=== PATIENT | female | born 1995 | race Caucasian/White ===

== ENCOUNTER 2019-04-08 12:10 | Outpatient (CLI) | payer OTHER, SELFPAY ==
[2019-04-08 12:41] VITALS: BMI 23.5
--- NOTE | 2019-04-11 09:03 | OB.TRI.NOTE ---
History of Present Illness Reason For Visit: NST Date of Service: 04/08/19 Final KEISHA: 05/27/19 Gestational age: 33 Weeks and 3 Days Allergies No Known Allergies Allergy (Verified 04/08/19 12:43) NST - FHR Rate Baby A Baseline: 135 Variability:: Minimal, Moderate Accelerations:: 15 x 15 Decelerations:: Variable NST Reactive:: Yes Uterine Activity:: quiet - FHR Rate Baby B Baseline: 125 Variability:: Minimal, Moderate Accelerations:: 15 x 15 Decelerations:: None NST Reactive:: Yes Uterine Activity:: quiet Impression/Plan Reactive NST for di/di twins
== END 2019-04-08 13:10 | disposition home or self-care (01) ==
LOC: WPOUT 12:38 → WP 12:38
PROVIDERS: Referring Provider Obstetrics & Gynecology; Visit Provider Obstetrics & Gynecology
DX: O30.043 Twin pregnancy, dichorionic/diamniotic, third trimester (principal); Z3A.33 33 weeks gestation of pregnancy
CPT/HCPCS: 59025

== ENCOUNTER 2019-04-22 09:50 | Outpatient (CLI) | payer OTHER, SELFPAY ==
[2019-04-22 10:10] VITALS: BMI 23.8
--- NOTE | 2019-04-22 12:22 | OB.TRI.NOTE ---
- Problem List (1) Twin Status: Acute Qualifiers: Multiple gestation type: dichorionic and diamniotic Trimester: third trimester Qualified Code(s): O30.043 - Twin , dichorionic/diamniotic, third trimester History of Present Illness Date of Service: 04/22/19 Was patient seen by the physician?: No Reason For Visit: NST / TWINS Date of Service: 04/22/19 Final KEISHA: 05/27/19 Final KEISHA Source: US <20 weeks Gestational age: 35 Weeks and 0 Days History of Present Illness: Patient presents to hospital for weekly NST. Patient denies any complaints or concerns at this time. She reports FM x 2 today. Allergies No Known Allergies Allergy (Verified 04/22/19 10:38) Review of Systems Unable to obtain accurate/complete ROS d/t: see nursing note for ROS Physical Exam Vitals: VSS, Afebrile See nursing note for PE NST - FHR Rate Baby A Baseline: 135 Variability:: Moderate Accelerations:: 15 x 15 Decelerations:: None NST Reactive:: Yes, Appropriate for gestational age FHR Category:: Category I Uterine Activity:: Uterine irritability noted - FHR Rate Baby B Baseline: 130 Variability:: Moderate Accelerations:: 15 x 15 Decelerations:: None NST Reactive:: Yes, Appropriate for gestational age FHR Category:: Category I Uterine Activity:: Uterine irritabilty noted.
== END 2019-04-22 10:50 | disposition home or self-care (01) ==
LOC: WPOUT 09:53 → WP 09:54
PROVIDERS: Referring Provider Obstetrics & Gynecology; Visit Provider Obstetrics & Gynecology
DX: O30.043 Twin pregnancy, dichorionic/diamniotic, third trimester (principal); Z3A.35 35 weeks gestation of pregnancy
CPT/HCPCS: 59025; 59050; 99218; G0378

== ENCOUNTER 2019-04-24 22:06 | Observation (INO) | payer OTHER, SELFPAY ==
[2019-04-24 20:29] VITALS: BMI 23.5
[2019-04-24 20:51] VITALS: BMI 23.6
--- NOTE | 2019-04-24 22:06 | PCM.HP.OB ---
- Problem List (1) 35 weeks gestation of Status: Acute (2) Vaginal bleeding Status: Acute (3) contractions Status: Acute (4) Twin Status: Acute Qualifiers: History Date of Admission: 04/24/19 Final KEISHA: 05/27/19 Gestational age: 35 Weeks and 2 Days History of this : This is a 23 year-old, G1, P0, at 35 weeks gestational age with di/di twins. She has been 4 cm dilated in the office. She had intercourse, and then began having ctx's q 10-15 min. They are getting more uncomfortable/painful since being here over the last 1-2 hours. +Bright red vaginal bleeding with cervical exams, but no bleeding prior. No LOF. Good FM x 2. Medical History: Medical History (Last Updated 04/24/19 @ 22:09 by Meliza Reyes DO) Anemia D64.9 Rubella non-immune status, antepartum O99.89, Z28.3 Allergies No Known Allergies Allergy (Verified 04/24/19 20:52) Home Medications: Home Medications Vit No.130/Iron/Folic [ Tablet] 1 each PO DAILY 04/08/19 Ergocalciferol [Vitamin D] 1 tab PO DAILY 04/24/19 Ferrous Sulfate, Dried [Iron] 159 mg PO DAILY 04/24/19 Zinc 50 mg PO DAILY 04/24/19 Smoking Status: Never smoker Alcohol: None Number of Fetus(es): 2 Heart Tracing: FHT: A 120/mod christa/+accels/no decels B 120/mod christa/+accels/no decels TOCO Analysis: Irritability with irregular ctx's History Past Pregnancies: Past Pregnancies Delivery Date Name GA/Weeks Outcome Route Weight Infant Gender Labor Length Anesthesia Delivery Location Provider FOB Labs: GBS neg Hgb 11.5 1 hr GTT 115 Syphilis NR RNI Hep B neg HIV NR A pos Antibody screen neg GC/CT neg Expected Delivery Method: Spontaneous Vaginal Review of Systems Gynecological: Reports: Vaginal bleeding, - - +Contractions Physical Exam General: Alert, No apparent distress HEENT: Atraumatic Cardiovascular: Regular rate Lungs: Normal air movement Abdomen: Soft, Non Tender, Gravid Extremities:: No edema Neurological: Neuro grossly intact MEDICAL LABORATORY SPECIALIST: Normal external genitalia Presentation: Cephalic Cervix Dilation (cm): 4.5 - per workers compensation claims specialist/Plan All Active Problems Twin (Acute) 35 weeks gestation of (Acute) Vaginal bleeding (Acute) contractions (Acute) This is a 23 year-old, G1, P0, at 35 weeks gestational age with di/di twins who presents with contractions and vaginal bleeding. Had intercourse and now having ctx's q 10-15 min. Contractions have worsened for her over last 1-2 hours. BRB after first cervical exam. - Cvx 4-5 cm and unchanged after recheck - FHT reactive and reassuring x 2 - Most recent US on 04/22/19 showing vertex/vertex presentation - Most recent growth US on 04/15/19: Baby A 1887 g (6%) and Baby B 2673 g (83%) with a 29.4 % discordance - Received BMZ on 04/22 and 04/23/19 - GBS neg - Will admit for observation overnight as patient's contractions have become more uncomfortable for her. She has minimal bright red vaginal bleeding as well. She is currently comfortable appearing. Discussed with patient to notify us if she becomes more uncomfortable, and will recheck cervix at that time - Will place IV and get CBC, T&S - NPO with sips of water overnight - Discussed with patient that if Baby A delivers vaginally, there is a possibility that Baby B turns to transverse or breech. If Baby B turns to breech she will need a section given the growth discordance with baby A being IUGR. Discussed epidural at time of delivery as well, and patient is undecided. Discussed possibility of needing general anesthesia for a section for baby B. All questions answered
[2019-04-24 22:54] LABS: Hematocrit 31.1 % (37-47); Hemoglobin 10.5 g/dl (12.0-15.0); Mean Corp Hgb Conc 33.8 g/gl (32-36); Mean Corpuscular Hgb 30.3 pg (27.0-32.0); Mean Corpuscular Volume 89.9 fL (81-99); Mean Platelet Vol. 10.5 fl (6.2-12.0); Platelet Count 207 K/mm3 (150-450); RBC Distribution Width CV 13.6 % (11.6-14.6); Red Blood Count 3.46 M/mm3 (4.2-5.4)
[2019-04-24 22:57] LABS: Scan Indicated on CBC? Y/N NO
--- NOTE | 2019-04-25 08:13 | PCM.PN.BLA ---
Progress Note Patient doing well this morning. She is still feeling occasional contractions but they are irregular. Vaginal bleeding is less. No other new complaints. Patient is comfortable appearing. Cvx remains unchanged and bleeding is now old, brown blood. FHT reactive and reassuring x 2. [place] with irregular ctx's. Discharge instructions reviewed with patient. Discussed pelvic rest. Has IOL scheduled for Sunday. Reviewed PTL precautions.
--- NOTE | 2019-04-25 08:16 | PN_ITS ---
Progress Note Patient doing well this morning. She is still feeling occasional contractions but they are irregular. Vaginal bleeding is less. No other new complaints. Patient is comfortable appearing. Cvx remains unchanged and bleeding is now old, brown blood. FHT reactive and reassuring x 2. [place] with irregular ctx's. Discharge instructions reviewed with patient. Discussed pelvic rest. Has IOL scheduled for Sunday. Reviewed PTL precautions.
--- NOTE | 2019-04-25 08:18 | DCINST_ITS ---
- Discharge Diagnoses Current Active Problems: Current Active and Chronic Problems (Last Updated 04/24/19 @ 22:09 by Meliza Reyes DO) 35 weeks gestation of (Acute) Vaginal bleeding (Acute) contractions (Acute) You will use the following diet at home:: No restrictions, Regular Discharge Activity: - - Nothing in the vagina May resume sexual activity in: - - No intercourse until after delivery Weight Bearing Status: Weight bearing as tolerated, Full weight bearing Lifting Restrictions: Nothing heavier than 25 pounds Call your doctor if you observe: - - Increased vaginal bleeding, leaking of fluid, increase in contractions or more painful contractions, decreased movement Allergies/Adverse Reactions: Allergies No Known Allergies Allergy (Verified 04/24/19 20:52) Medications to take at Discharge Vit No.130/Iron/Folic [ Tablet] 1 each PO DAILY 04/08/19 Ergocalciferol [Vitamin D] 1 tab PO DAILY 04/24/19 Ferrous Sulfate, Dried [Iron] 159 mg PO DAILY 04/24/19 Zinc 50 mg PO DAILY 04/24/19 Primary Care Physician: Care Physician,No Primary [Primary Care Provider] - Test Results: Test results from this visit will be discussed in further detail at your follow- up appointment, if applicable. Proposed Discharge Date: 04/25/19
== END 2019-04-25 08:10 | disposition home or self-care (01) ==
LOC: WPOUT 04-25 08:24
PROVIDERS: Admitting Provider Obstetrics & Gynecology; Referring Provider Obstetrics & Gynecology; Visit Provider Obstetrics & Gynecology
DX: O46.93 Antepartum hemorrhage, unspecified, third trimester (principal); Z3A.35 35 weeks gestation of pregnancy; O30.043 Twin pregnancy, dichorionic/diamniotic, third trimester; O62.9 Abnormality of forces of labor, unspecified; O99.02 Anemia complicating childbirth; D64.9 Anemia, unspecified
CPT/HCPCS: 59025; 59050; 85027; 86850; 86900; 99218; G0378

== ENCOUNTER 2019-04-29 06:52 | Inpatient (IN) | payer SELFPAY ==
[2019-04-29 07:21] VITALS: BMI 21.9
[2019-04-29] MEDS: Lactated Ringers 1,000 ML 50 ML IV ×2 (07:25→09:37)
[2019-04-29 07:41] LABS: Absolute Lymphocyte Count 3.55 X10^3/ul (0.83-4.51); Absolute Neutrophil Count 7.5 X10^3/uL (2.0-7.7); Basophil# 0.01 X10^3/uL; Basophil% 0.1 % (0-1); Eosinophils% 0.9 % (0-5); Hematocrit 36.7 % (37-47); Hemoglobin 12.9 g/dl (12.0-15.0); Lymphocyte # 3.55 X10^3/ul (4.0); Lymphocyte % 30.3 % (19-41); Mean Corp Hgb Conc 35.1 g/gl (32-36); Mean Corpuscular Hgb 30.8 pg (27.0-32.0); Mean Corpuscular Volume 87.6 fL (81-99); Mean Platelet Vol. 10.4 fl (6.2-12.0); Monocyte# 0.49 X10^3/uL; Monocyte% 4.2 % (0-10); Neutrophil # 7.46 X10^3/uL (2.7-7.7); Neutrophil % 63.6 % (47-70); POSITIVE COUNT NO; POSITIVE DIFFERENTIAL NO; POSITIVE MORPHOLOGY NO; Platelet Count 212 K/mm3 (150-450); RBC Distribution Width CV 13.4 % (11.6-14.6); RBC Distribution Width SD 42.4 fl (35.1-43.9); Red Blood Count 4.19 M/mm3 (4.2-5.4); White Blood Count 11.7 K/mm3 (4.4-11.0)
--- NOTE | 2019-04-29 08:01 | PCM.PN.BLA ---
Progress Note Cervix 5/80/0, medium consistency and mid position. AROM w return of small amount clear fluid. FHTS x2 category 1., Brief US confirms VTx/VTX
[2019-04-29] MEDS: Oxytocin 30 units/NS 500 ml 30 UNITS/500 ML IV.SOLN IV (08:22)
[2019-04-29] MEDS: fentaNYL-bupivacaine (epidural) 100 ML BAG EPIDURAL (10:08)
--- NOTE | 2019-04-29 16:46 | PLAC_PTH ---
PATIENT: BRIGIDA THOMASON LOC: [facility] U#:[id number] AGE/SX: 23/ ROOM: WP021 RE04/29/[address]: Dr. Ramona Guy MD : [id number] BED: 1 DIS: 05/01/2019 SPEC #: [id number] RECD: 04/29/19 20:01 STATUS: JEFFREY DODIE #: [id number] TRENT: 04/29/19 16:[address]: Ramona Guy DEPT: SURGICAL PATHOLOGY RECD BY: Gary Chaparro ENTERED: 04/30/19 10:23 SP TYPE: PLACENTA OTHR DR: Kylah Primary Care Phys Tissues: Placenta, NOS Procedures: Surgery Specimen Level V HEADER OPERATION: Vaginal delivery PRE-OP DIAGNOSIS: Twins, baby A IUGR, cord clamp on B TISSUE SUBMITTED: Placenta MICROSCOPIC DIAGNOSIS Twin placenta: Dichorionic and diamniotic twin placenta (two separate placentas). Placenta A: Placental disc - third trimester placenta (347 gm). - Focal villous congestion and hemorrhage. Membranes - no pathologic diagnosis. Umbilical cord - three blood vessels and no pathologic diagnosis. Placenta B: Placental disc - third trimester placenta (462 gm). - Focal villous congestion and hemorrhage. Membranes - no pathologic diagnosis. Umbilical cord - three blood vessels and no pathologic diagnosis. SJ:dominga 05/02/19 MICROSCOPIC DESCRIPTION Slides are reviewed. GROSS DESCRIPTION SPECIMEN: TWIN PLACENTA The specimen consists of twin placenta consisting completely of two separate placentas with placenta B identified by a cord clamp. No dividing membranous septum is noted. Also present in the container are separate blood clots weighing 16 gm and measuring in aggregate 7 x 4 x 2 cm. / CLINICAL INFORMATION: A. Weight: A - 2.025 kg; B - 2.61 kg B. Gestational Age: 36 weeks C. Sex: A - Male; B - Male PLACENTA A: PLACENTAL WEIGHT (POST FIXATION): 347 gm PLACENTAL DIMENSIONS: 17 x 14 x 2 cm PLACENTAL SHAPE: Usual ovoid PLACENTAL WEIGHT FOR GESTATIONAL AGE: Within 10-99th percentile MEMBRANES - Present A. Insertion: Marginal B. Site of rupture from edge: 10 cm from edge of placental disc C. Color of membrane: Granado-bernard D. Abnormalities: None UMBILICAL CORD - Present A. Color: Granado-bernard B. Insertion: Paracentral C. Length: 26 cm D. Diameter: 1 cm E. Number of vessels: Three F. Abnormalities: None PLACENTAL DISC - Present A. Color of surface: Granado-bernard B. surface abnormalities: None C. Maternal cotyledons: Intact with minimal tears D. Attached retro placental clot: No clot E. Cut surface: Dark red and spongy F. Lesions: None G. Separate clot: Absent PLACENTA B: (with cord clamp) PLACENTAL WEIGHT (POST FIXATION): 462 gm PLACENTAL DIMENSIONS: 21 x 18 x 3 cm PLACENTAL SHAPE: Usual ovoid PLACENTAL WEIGHT FOR GESTATIONAL AGE: Within 10-99th percentile MEMBRANES - Present A. Insertion: Marginal B. Site of rupture from edge: 9 cm from edge of placental disc C. Color of membrane: Granado-bernard D. Abnormalities: None UMBILICAL CORD - Present A. Color: Granado-bernard B. Insertion: Central C. Length: 29 cm D. Diameter: 1.2 cm E. Number of vessels: Three F. Abnormalities: None PLACENTAL DISC - Present A. Color of surface: Granado-bernard B. surface abnormalities: None C. Maternal cotyledons: Intact with minimal tears D. Attached retro placental clot: No clot E. Cut surface: Dark red and spongy F. Lesions: None G. Separate clot: Absent SECTIONS SUBMITTED: 10 cassettes 1-5 - placenta A (1 - membrane roll, 2 - umbilical cord, end inked black, 3-5 - body of the placenta including maternal and surfaces), 6-10 - placenta B (6 - membrane roll, 7 - umbilical cord, end inked black, 8-10 - body of the placenta including maternal and surfaces). SJ:dominga 05/01/19 TC:5 CPT: 55655 x2
[2019-04-29] MEDS: Oxytocin 30 units/NS 500 ml 30 UNITS/500 ML IV.SOLN 334 UNITS IV (16:50)
[2019-04-29] MEDS: Oxytocin 30 units/NS 500 ml 30 UNITS/500 ML IV.SOLN 167 UNITS IV (17:20)
--- NOTE | 2019-04-29 17:21 | HP.PCM_ITS ---
History Date of Admission: 04/24/19 Final KEISHA: 05/27/19 Gestational age: 36 Weeks and 0 Days History of this : This is a 23 year-old, G [], P [], at 36 weeks gestational age. Medical History: Medical History (Last Updated 04/24/19 @ 22:09 by Meliza Reyes DO) Anemia D64.9 Rubella non-immune status, antepartum O99.89, Z28.3 Allergies No Known Allergies Allergy (Verified 04/24/19 20:52) Home Medications: Home Medications Vit No.130/Iron/Folic [ Tablet] 1 each PO DAILY 04/08/19 Ergocalciferol [Vitamin D] 1 tab PO DAILY 04/24/19 Ferrous Sulfate, Dried [Iron] 159 mg PO DAILY 04/24/19 Zinc 50 mg PO DAILY 04/24/19 Smoking Status: Never smoker History Past Pregnancies: Past Pregnancies Delivery Date Name GA/Weeks Outcome Route Weight Infant Gender Labor Length Anesthesia Delivery Location Provider FOB Labs: see [facility] H[facility]P Physical Exam General: Alert, Oriented x3 Abdomen: Soft, Non Tender, Non-Distended Neurological: Cranial nerves II-XII grossly intact Assessment/Plan All Active Problems (Last Updated 04/24/19 @ 22:09 by Meliza Reyes DO) Twin (Acute) 35 weeks gestation of (Acute) Vaginal bleeding (Acute) contractions (Acute) This is a 23 year-old female at 36 weeks gestational age. Admit to L&D Di/di twins with baby A IUGR - proceed with induction of labor per recommendat ion of ([facility]) Induction - amniotomy & pitocin Pain - epidural GBS negative Peds aware & s/p BMZ Routine care
--- NOTE | 2019-04-29 17:23 | PCM.OPRPT ---
Report of Operation Date of Procedure: 04/29/19 Vaginal Delivery Maternal Presentation: Medically Indicated Induction Method of Induction: Pitocin, Amniotomy Medical Reason for Induction: Compromise: list: - Baby A IUGR Amniotic Membrane Rupture Type: Artificial Amniotic Fluid Description: Clear Final KEISHA: 05/27/19 Gestational age: 36 Weeks and 0 Days Date of Procedure: 04/29/19 Pre-Operative Diagnosis: (1) Di/di twins (2) Baby A IUGR Post-Operative Diagnosis: (2) Di/di twins (2) Baby A IUGR (3) Baby B Non-reassuring heart tones Surgery/ Procedure Performed: Spontaneous Vaginal Delivery - Baby A, Vacuum Assisted Vaginal Delivery - Baby B Type of Anesthesia: Epidural Description of Procedure: Patient taken to OR. She was put in stirrups, prepped & draped. After 2 contractions she went from anterior lip to C/C/+1. The patient started pushing. After about 3 hours of pushing the head of baby A delivered. The shoulders & body easily followed. 3VC clamped & cut. Baby A was handed to the waiting pediatric nurse. Baby B was confirmed vertex by ultrasound. Amniotomy performed & FSE placed. The patient rested briefly & then resumed pushing when head was at the +1 station. She made good descent to the +2 station with pushing. Patient pushed well but was having deep variables with contractions to the 40's. The head position was assessed & decision made to use the vacuum for these persistent deep variables. Vacuum placed on head & position confirmed. With good maternal pushing the head delivered with 1 pull of the vacuum. Vacuum released. Shoulders & body easily delivered. 3VC clamped & cut. Baby B handed to waiting experimental plastics fabricator. Placentas delivered with gentle traction. Good uterine tone obtained. Presentation: Vertex Placental Delivery Description: Expressed Placenta Disposition: [facility] Cord Vessel Description: 3 Vessels Cord Entanglement: None Estimated Blood Loss: 400ml (1 minute): 9 (5 minute): 9 Episiotomy Description: None Laceration: Vaginal Extension/lac - repaired with 3-0 vicryl Medications given after delivery: IV Pitocin Complications: None Baby B - Information Amniotic Membrane Rupture Type: Artificial Presentation: Vertex - Operative Information Cord Entanglement: None Cord Vessel Description: 3 Vessels Infant B gender: Male (1 minute): 8 (5 minute): 9
--- NOTE | 2019-04-29 17:27 | OP.PCM_ITS ---
Report of Operation Date of Procedure: 04/29/19 Vaginal Delivery Maternal Presentation: Medically Indicated Induction Method of Induction: Pitocin, Amniotomy Medical Reason for Induction: Compromise: list: - Baby A IUGR Amniotic Membrane Rupture Type: Artificial Amniotic Fluid Description: Clear Final KEISHA: 05/27/19 Gestational age: 36 Weeks and 0 Days Date of Procedure: 04/29/19 Pre-Operative Diagnosis: (1) Di/di twins (2) Baby A IUGR Post-Operative Diagnosis: (2) Di/di twins (2) Baby A IUGR (3) Baby B Non- reassuring heart tones Surgery/ Procedure Performed: Spontaneous Vaginal Delivery - Baby A, Vacuum Assisted Vaginal Delivery - Baby B Type of Anesthesia: Epidural Description of Procedure: Patient taken to OR. She was put in stirrups, prepped & draped. After 2 contractions she went from anterior lip to C/C/+1. The patient started pushing. After about 3 hours of pushing the head of baby A delivered. The shoulders & body easily followed. 3VC clamped & cut. Baby A was handed to the waiting pediatric nurse. Baby B was confirmed vertex by ultrasound. Amniotomy performed & FSE placed. The patient rested briefly & then resumed pushing when head was at the +1 station. She made good descent to the +2 station with pushing. Patient pushed well but was having deep variables with contractions to the 40's. The head position was assessed & decision made to use the vacuum for these persistent deep variables. Vacuum placed on head & position confirmed. With good maternal pushing the head delivered with 1 pull of the vacuum. Vacuum released. Shoulders & body easily delivered. 3VC clamped & cut. Baby B handed to waiting pediatric clinical nurse specialist. Placentas delivered with gentle traction. Good uterine tone obtained. Presentation: Vertex Placental Delivery Description: Expressed Placenta Disposition: [facility] Cord Vessel Description: 3 Vessels Cord Entanglement: None Estimated Blood Loss: 400ml (1 minute): 9 (5 minute): 9 Episiotomy Description: None Laceration: Vaginal Extension/lac - repaired with 3-0 vicryl Medications given after delivery: IV Pitocin Complications: None Baby B - Information Amniotic Membrane Rupture Type: Artificial Presentation: Vertex - Operative Information Cord Entanglement: None Cord Vessel Description: 3 Vessels Infant B gender: Male (1 minute): 8 (5 minute): 9
[2019-04-29] MEDS: Ibuprofen 600 MG Tablet PO (18:28)
[2019-04-29] MEDS: Methylergonovine 0.2 MG/ML Ampul IM (18:28)
[2019-04-30] VITALS (7 sets, daily range): BP systolic 104–114; BP diastolic 51–73; PULSE 70–93; RESP 16–18; TEMP 36.4–36.9; O2SAT 97–98
--- NOTE | 2019-04-30 06:39 | PCM.PN.OB ---
Subjective: Patient sitting up in bed at this time bonding with babies; also at bedside helping support patient and holding on to baby at this time. Patient reports that babies are rooting and latching on well. Patient reports that she was able to rest and sleep on and off through out the night. Reports no issues with urination or ambulation, notes that bleeding has decreased since delivery. Denies any issues or complaints at this time. Objective: Nipples with few cracks, ecchymoses. No erythema of breast noted. Abdomen NT x 4 quadrants, FF midline 1FB below umbilicus Perineum with mild edema, no evidence of hematoma. Well-approximated +2/4 reflexes in LE, trace non-pitting edema noted Scant rubra lochia - Physical Exam General: Alert, Oriented x3, Cooperative HEENT: Atraumatic, Normocephalic Lungs: Normal air movement Cardiovascular: Regular rate, No murmurs Abdomen: Soft, Non Tender Extremities: No edema, Capillary Refill Less than 3 Seconds Skin: No rashes, No breakdown Musculoskeletal: No Tenderness to Palpation of Joints or Extremities Neurological: Cranial nerves II-XII grossly intact Psych/Mental Status: Normal Affect, Appropriate Vital Signs Temp Pulse Resp BP 98.5 F 70 16 113/54 L 04/30/19 03:45 04/30/19 03:45 04/30/19 03:45 04/30/19 03:45 Weight: 115 lb 15.41 oz Body Mass Index (BMI) 21.9 Intake and Output for Last 24 Hours 04/28/19 04/29/19 04/30/19 23:59 23:59 23:59 Intake Total 3473 / 3473 Output Total 1875 / 1875 Balance 1598 / 1598 Laboratory Tests Past 24 Hrs 04/29/19 04/29/19 07:25 07:25 WBC 11.7 H RBC 4.19 L Hgb 12.9 Hct 36.7 L MCV 87.6 MCH 30.8 MCHC 35.1 RDW 13.4 RDW Differential 42.4 Plt Count 212 MPV 10.4 Immature Gran % (Auto) 0.900 Neut % (Auto) 63.6 Lymph % (Auto) 30.3 Piute % (Auto) 4.2 Eos % (Auto) 0.9 Baso % (Auto) 0.1 Absolute Neuts (auto) 7.5 Absolute Lymphs (auto) 3.55 Total Counted Not Reportable Blood Type A POSITIVE Antibody Screen NEGATIVE Medical Necessity - Tobacco Use Smoking Status: Never smoker Assessment/Plan All Active Problems (Last Updated 04/24/19 @ 22:09 by Meliza Reyes DO) Twin (Acute) 35 weeks gestation of (Acute) Vaginal bleeding (Acute) contractions (Acute) 23 y/o , s/p Twin Vaginal Delivery, PPD #1, Normal PP Course P: 1) Continue 2) Continue orders at this time 3) Anticipate discharge to home tomorrow Nadine LONGORIA
[2019-05-01 02:40] VITALS: BP 122/60; PULSE 75; RESP 16; TEMP 36.4; O2SAT 98
--- NOTE | 2019-05-01 08:10 | PCM.DCVAG ---
Discharge Diet: No Restrictions Discharge Activity: May Shower May resume sexual activity in: 6 weeks Weight Bearing Status: Weight bearing as tolerated Additional Instructions: If you experience any of the following, contact your healthcare provider. Bleeding that soaks a pad every hour for 2 hours Fever 100.4 or higher Unrelieved incision or abdominal pain Swelling, redness, discharge or bleeding from your incision or episiotomy site Your incision begins to separate Problems urinating (including inability to urinate or burning while urinating). Visual changes Severe headache Flu-like symptoms Pain or redness in one of both of your breasts Pain, warmth, tenderness or swelling in your legs, especially the calf area Frequent nausea and vomiting Symptoms of depression or anxiety If you experience any of the following, call 911 or go to the nearest Emergency Room. Chest pain Problems breathing Seizure activity Partial or complete paralysis of a body part, slurred speech, weakness or drooping of the face, or a sudden inability to walk or hold your balance Allergies/Adverse Reactions: Allergies No Known Allergies Allergy (Verified 04/24/19 20:52) Medications to take at Discharge Vit No.130/Iron/Folic [ Tablet] 1 each PO DAILY 04/08/19 Ergocalciferol [Vitamin D] 1 tab PO DAILY 04/24/19 Ferrous Sulfate, Dried [Iron] 159 mg PO DAILY 04/24/19 Zinc 50 mg PO DAILY 04/24/19 Acetaminophen [Tylenol] 1,000 mg PO Q8H PRN PRN tablet 05/01/19 Ibuprofen [Motrin] 600 mg PO Q6H PRN PRN tablet 05/01/19 Primary Care Physician: Care Physician,No Primary [Primary Care Provider] - Test Results: Test results from this visit will be discussed in further detail at your follow-up appointment, if applicable.
--- NOTE | 2019-05-01 08:11 | DCINST_ITS ---
Discharge Diet: No Restrictions Discharge Activity: May Shower May resume sexual activity in: 6 weeks Weight Bearing Status: Weight bearing as tolerated Additional Instructions: If you experience any of the following, contact your healthcare provider. * Bleeding that soaks a pad every hour for 2 hours * Fever 100.4 or higher * Unrelieved incision or abdominal pain * Swelling, redness, discharge or bleeding from your incision or episiotomy site * Your incision begins to separate * Problems urinating (including inability to urinate or burning while urinating). * Visual changes * Severe headache * Flu-like symptoms * Pain or redness in one of both of your breasts * Pain, warmth, tenderness or swelling in your legs, especially the calf area * Frequent nausea and vomiting * Symptoms of depression or anxiety If you experience any of the following, call 911 or go to the nearest Emergency Room. * Chest pain * Problems breathing * Seizure activity * Partial or complete paralysis of a body part, slurred speech, weakness or drooping of the face, or a sudden inability to walk or hold your balance Allergies/Adverse Reactions: Allergies No Known Allergies Allergy (Verified 04/24/19 20:52) Medications to take at Discharge Vit No.130/Iron/Folic [ Tablet] 1 each PO DAILY 04/08/19 Ergocalciferol [Vitamin D] 1 tab PO DAILY 04/24/19 Ferrous Sulfate, Dried [Iron] 159 mg PO DAILY 04/24/19 Zinc 50 mg PO DAILY 04/24/19 Acetaminophen [Tylenol] 1,000 mg PO Q8H PRN PRN tablet 05/01/19 Ibuprofen [Motrin] 600 mg PO Q6H PRN PRN tablet 05/01/19 Primary Care Physician: Care Physician,No Primary [Primary Care Provider] - Test Results: Test results from this visit will be discussed in further detail at your follow- up appointment, if applicable.
--- NOTE | 2019-05-01 08:12 | PCM.PN.OB ---
Subjective: Denies complaints. is going well. - Physical Exam General: Alert, Oriented x3 Abdomen: Soft, Non Tender, Non-Distended - ff mid & below umb Extremities: No edema, No Calf Tenderness Neurological: Cranial nerves II-XII grossly intact Psych/Mental Status: Normal Affect Vital Signs Temp Pulse Resp BP Pulse Ox 97.6 F L 75 16 122/60 H 98 05/01/19 02:40 05/01/19 02:40 05/01/19 02:40 05/01/19 02:40 05/01/19 02:40 Oxygen Delivery Method Room Air Weight: 115 lb 15.41 oz Body Mass Index (BMI) 21.9 Intake and Output for Last 24 Hours 04/29/19 04/30/19 05/01/19 23:59 23:59 23:59 Intake Total 3473 / 3473 Output Total 1875 / 1875 Balance 1598 / 1598 Medical Necessity - Tobacco Use Smoking Status: Never smoker Assessment/Plan All Active Problems (Last Updated 04/24/19 @ 22:09 by Meliza Reyes DO) Twin (Acute) 35 weeks gestation of (Acute) Vaginal bleeding (Acute) contractions (Acute) PPD#1 D/c home Pain - advised on OTC meds Encouraged Encouraged eating & drinking during each nursing session to maintain maternal weight
[2019-05-01 10:00] VITALS: BP 112/57; PULSE 85; RESP 16; TEMP 36.7; O2SAT 97
--- NOTE | 2019-05-01 15:47 | NURSING ---
pt declined to get MMR>
[2019-05-02 15:22] LABS: Pathology Specimen OB SEE PATHOLOGY REPORT
== END 2019-05-01 13:15 | disposition home or self-care (01) | DRG 806 ==
PROVIDERS: Obstetrics & Gynecology; Admitting Provider Obstetrics & Gynecology; Referring Provider Obstetrics & Gynecology; Visit Provider Obstetrics & Gynecology
DX: O60.14X2 Preterm labor third trimester with preterm delivery third trimester, fetus 2 (principal); O71.4 Obstetric high vaginal laceration alone; Z37.2 Twins, both liveborn; O60.14X1 Preterm labor third trimester with preterm delivery third trimester, fetus 1; O36.5931 Maternal care for other known or suspected poor fetal growth, third trimester, fetus 1; O76 Abnormality in fetal heart rate and rhythm complicating labor and delivery; O99.02 Anemia complicating childbirth; D64.9 Anemia, unspecified; O30.043 Twin pregnancy, dichorionic/diamniotic, third trimester; Z3A.36 36 weeks gestation of pregnancy
CPT/HCPCS: 59025; 59050; 76815; 85025; 86850; 86900; 88307; 99218; J7120; G0378; J2405